=== PATIENT | female | born 1965 | race Caucasian/White ===

== ENCOUNTER 2017-01-17 15:24 | Emergency (ER) | payer OTHER ==
--- NOTE | 2017-01-17 19:31 | ED ---
GI/ HPI - HPI Summary HPI Summary: 51 y/o female with PMH for depression, thyroid, recetn UTI presents after feelings of something "stuck in throat". Patient states over past month has had difficulty swallowing where pieces of food will get "stuck" underneath sternum, taking several minutes to clear from throat. When these happened, patient was able to swallow secretions, minimal pain. H/O indigestion. over past week, symptoms worsened to where tonight patient was chewing meat, felt meat get stuck in bottom of esophagus, was unable to swallow secretions, vomited ~ 1 hour ago, now able to swallow without difficulty, has "sensation" of stricture at base of eophagus, mother recently with ? esop diliation . - History of Current Complaint Chief Complaint: EDGeneral Time Seen by Provider: 01/17/17 18:47 Stated Complaint: FOOD IN ESOPHAGUS Hx Obtained From: Patient Onset/Duration: Started Hours Ago - current symptoms, Started Weeks Ago Severity: Severe Current Severity: None Pain Intensity: 10 - Allergy/Home Medications Allergies/Adverse Reactions: Allergies Allergy/AdvReac Type Severity Reaction Status Date / Time Amoxicillin Allergy Mild r Verified 07/15/13 17:59 PMH/Surg Hx/FS Hx/Imm Hx Previously Healthy: Yes - hypothyroid, depression History: Reports: Hx Kidney Stones - BILATERAL - Surgical History Surgery Procedure, Year, and Place: laproscopic surgerie for endometriosis 20 years prior, TUBAL, TONSILLECTOMY - Immunization History Date of Tetanus Vaccine: UP TO DATE Date of Influenza Vaccine: FALL 2012 Immunizations Up to Date: Yes Infectious Disease History: No Infectious Disease History: Denies: Traveled Outside the [place] in Last 30 Days - Social History Alcohol Use: Occasionally Substance Use Type: Reports: None Smoking Status (MU): Never Smoked Tobacco Review of Systems Positive: Other - difficulty swalllwing FB in thraot Positive: Abdominal Pain, Vomiting All Other Systems Reviewed And Are Negative: Yes Physical Exam Triage Information Reviewed: Yes Vital Signs On Initial Exam: Initial Vitals Temp Pulse Resp BP Pulse Ox 96.8 F 66 20 111/73 100 01/17/17 15:39 01/17/17 15:39 01/17/17 15:39 01/17/17 15:39 01/17/17 15:39 Vital Signs Reviewed: Yes Appearance: Positive: Well-Appearing, No Pain Distress, Well-Nourished Skin: Positive: Warm, Skin Color Reflects Adequate Perfusion ENT: Positive: Normal ENT inspection Neck: Positive: Supple, Nontender Respiratory/Lung Sounds: Positive: Clear to Auscultation, Breath Sounds Present Cardiovascular: Positive: Normal, RRR, Pulses are Symmetrical in both Upper and Lower Extremities Abdomen Description: Positive: Nontender, No Organomegaly, Soft, Other: - mild epigastric apin with deep palpation. Negative: CVA Tenderness (R), CVA Tenderness (L), Distended, Guarding Diagnostics - Vital Signs Vital Signs Temp Pulse Resp BP Pulse Ox 01/17/17 16:38 98.1 F 86 20 118/64 100 01/17/17 15:39 96.8 F 66 20 111/73 100 - Laboratory Lab Statement: Any lab studies that have been ordered have been reviewed, and results considered in the medical decision making process. GIGU Course/Dx - Course Course Of Treatment: Discussed case with DR. Smith and Dr. Renee, Dr renee will follow as outpaient agreed to radiograph to eval for FB, none seen on review, Protonix for indigestion/ soft diet, return for new sytmpoms. patient curently asmptomatic, swallowing well without difficulty - Diagnoses Differential Diagnoses - Female: Esophagitis/Gastritis, Esophageal Varices, Retained Foreign Body Provider Diagnoses: Foreign body in esophagus Discharge - Discharge Plan Condition: Guarded Disposition: HOME Prescriptions: Pantoprazole Sodium [Protonix] 20 mg PO BID #60 tab Patient Education Materials: Esophageal Stricture (ED), Esophageal Spasm (ED) Referrals: Remberto Lobato MD [Medical Doctor] - (Follow up with GI physician within 1-2 weeks for further work up, evaluation ) Melissa Justice MD [Primary Care Provider] - Additional Instructions: - Soft diet only- boiled meats, no raw vegetables. Soft foods only, such as soups. - Protonix daily as directed - REturn to ER with repeat symptoms, unable to swallow secretions
--- NOTE | 2017-01-17 19:42 | RAD ---
INDICATION: Foreign body sensation in throat COMPARISON: None TECHNIQUE: PA and lateral views of the chest were obtained. FINDINGS: The heart and mediastinum are normal in size and contour. The lungs are grossly clear. There is no evidence of large pleural effusion. Visualized bones are normal for the patient's age. There is no radiographic evidence of free air beneath the diaphragm IMPRESSION: No radiographic evidence of acute cardiopulmonary disease.
[2017-01-17] MEDS ORDERED: Famotidine TAB* 20 MG PO ONE (19:54)
[2017-01-17 21:32] VITALS: BP 115/67
== END 2017-01-17 21:15 | disposition home or self-care (01) ==
LOC: ED 15:24
DX: T18.108A Unspecified foreign body in esophagus causing other injury, initial encounter (principal); X58.XXXA Exposure to other specified factors, initial encounter; Y92.9 Unspecified place or not applicable; E03.9 Hypothyroidism, unspecified; F32.9 Major depressive disorder, single episode, unspecified; Z87.442 Personal history of urinary calculi
CPT/HCPCS: 71020; A9270-GY

== ENCOUNTER 2017-05-16 15:19 | Emergency (ER) | payer OTHER ==
[2017-05-16] MEDS ORDERED: NS 0.9% 1000 ML* 2,000 ML IV ONE (17:37)
[2017-05-16] MEDS ORDERED: Ondansetron INJ* 2 MG/ML VIAL IV ONE (17:59)
[2017-05-16] MEDS ORDERED: Ketorolac INJ* 30 MG/ML 1 ML VIAL IV PUSH ONE (17:59)
[2017-05-16 18:04] LABS: Hematocrit 38 % (35-47); Hemoglobin 13.4 g/dl (12.0-16.0); Mean Corpuscular HGB Conc 35 g/dl (31-36); Mean Corpuscular Hemoglobin 31 pg (27-31); Mean Corpuscular Volume 88 fL (80-97); Mean Platelet Volume 9 um3 (7.4-10.4); Platelet Count 103 10^3/ul (150-450); Red Blood Count 4.32 10^6/ul (4.0-5.4); Red Cell Distribution Width 12 % (10.5-15); White Blood Count 3.9 10^3/ul (3.5-10.8)
[2017-05-16 18:17] LABS: EGFR Non-African American 91.6 (>60)
[2017-05-16 19:27] VITALS: BP 121/68
--- NOTE | 2017-05-19 12:54 | ED ---
Edmundo Hartmann Stephanie, scribed for Garrett Ravi MD on 05/16/17 at 1802 . GI/ HPI - HPI Summary HPI Summary: The pt is a 51 y/o F presenting to the ED with c/o diarrhea that began on 05/14. Symptoms include decreased energy, chills, weakness, nausea, intermittent abd pain, cough and myalgia. The pt denies CP, SOB and bloody stools. - History of Current Complaint Chief Complaint: EDNauseaVomitDiarrh Time Seen by Provider: 05/16/17 17:37 Stated Complaint: FEVER Hx Obtained From: Patient Onset/Duration: Started Hours Ago - 14 Timing: Intermittent Current Severity: Mild Pain Intensity: 0 Location of Pain: Diffuse Associated Signs and Symptoms: Positive: Weakness, Nausea, Chills, Cough, Other : - decreased energy, myalgia, intermittent abd pain Aggravating Factor(s): Nothing Alleviating Factor(s): Nothing - Allergy/Home Medications Allergies/Adverse Reactions: Allergies Allergy/AdvReac Type Severity Reaction Status Date / Time No Known Allergies Allergy Verified 05/16/17 17:29 Home Medications: Home Medications Pantoprazole Sodium 20 mg PO DAILY 05/16/17 [History Confirmed 05/16/17] PMH/Surg Hx/FS Hx/Imm Hx History: Reports: Hx Kidney Stones - BILATERAL Opthamlomology History: Denies: Hx Legally Blind - Surgical History Surgery Procedure, Year, and Place: laproscopic surgerie for endometriosis 20 years prior, TUBAL, TONSILLECTOMY - Immunization History Date of Tetanus Vaccine: UP TO DATE Date of Influenza Vaccine: FALL 2012 Infectious Disease History: No Infectious Disease History: Denies: Traveled Outside the [place] in Last 30 Days - Family History Known Family History: Positive: Other - diabetes, cancer, achromeglia, arthritis , arthritis, mental illness an - Social History Occupation: Employed Full-time Lives: With Family Alcohol Use: None Substance Use Type: Reports: None Smoking Status (MU): Never Smoked Tobacco Review of Systems Positive: Chills, Other - decreased energy. Negative: Fever Negative: Erythema Negative: Sore Throat Negative: Chest Pain Positive: Cough. Negative: Shortness Of Breath Positive: Abdominal Pain, Diarrhea, Nausea, Other - Negative: bloody stools. Negative: Vomiting Negative: dysuria, hematuria Positive: Myalgia. Negative: Edema Negative: Rash Neurological: Other - Negative: dizziness Positive: Weakness All Other Systems Reviewed And Are Negative: Yes Physical Exam - Summary Physical Exam Summary: Constitutional: Well-developed, Well-nourished, Alert. (-) Distressed Skin: Warm, Dry HENT: Normocephalic; Atraumatic Eyes: Conjunctiva normal Neck: Musculoskeletal ROM normal neck. (-) JVD, (-) Stridor, (-) Tracheal deviation Cardio: Rhythm regular, rate normal, Heart sounds normal; Intact distal pulses; The pedal pulses are 2+ and symmetric. Radial pulses are 2+ and symmetric. (-) Murmur Pulmonary/Chest wall: Effort normal. (-) Respiratory distress, (-) Wheezes, (-) Rales Abd: Soft, (-) Tenderness, (-) Distension, (-) Guarding, (-) Rebound Musculoskeletal: (-) Edema Lymph: (-) Cervical adenopathy Neuro: Alert, Oriented x3 Psych: Mood and affect Normal Triage Information Reviewed: Yes Vital Signs On Initial Exam: Initial Vitals Temp Pulse Resp BP Pulse Ox 99.7 F 92 20 126/63 97 05/16/17 15:45 05/16/17 15:45 05/16/17 15:45 05/16/17 15:45 05/16/17 15:45 Vital Signs Reviewed: Yes Diagnostics - Vital Signs Vital Signs Temp Pulse Resp BP Pulse Ox 05/16/17 15:45 99.7 F 92 20 126/63 97 - Laboratory Lab Results: Lab Results 05/16/17 Range/Units 16:00 Influenza A (Rapid) Negative (Negative) Influenza B (Rapid) Negative (Negative) Result Diagrams: 05/16/17 17:50 05/16/17 17:50 Lab Statement: Any lab studies that have been ordered have been reviewed, and results considered in the medical decision making process. GIGU Course/Dx - Course Course Of Treatment: Follow up with PCP in 2 days. Increase clear liquids containing electrolytes. No surgical abdomen - Diagnoses Provider Diagnoses: Diarrhea, Dehydration Discharge - Discharge Plan Condition: Stable Disposition: HOME Patient Education Materials: Dehydration (ED), Nutrition Tips for Relief of Diarrhea (ED) Referrals: Philly Pink [facility] [Primary Care Provider] - 3 Days [facility] [place] PHYSICIAN REFERRAL [Outside] - 3 Days Additional Instructions: RETURN TO THE EMERGENCY DEPARTMENT FOR CHANGING OR WORSENING SYMPTOMS. Increase clear liquids containing electrolytes. The documentation as recorded by the Edmundo sarmiento Stephanie accurately reflects the service I personally performed and the decisions made by me, Garrett Ravi MD.
== END 2017-05-16 19:25 | disposition home or self-care (01) ==
LOC: ED 15:19
DX: R19.7 Diarrhea, unspecified (principal); E86.0 Dehydration
CPT/HCPCS: 36415; 80053; 85027; 87502; 96374; 96375; 99284; J1885; J2405

== ENCOUNTER 2019-03-08 11:37 | Emergency (ER) | payer OTHER ==
--- OUTSIDE RECORDS SUMMARY | 2019-03-08 12:05 | XMS REPORT ---
:1965 Author Organization [facility] Team Providers Name Role Phone Ramiro Wick Unavailable Unavailable PROBLEMS Unknown Problems ALLERGIES No Information ENCOUNTERS Encounter Location Date Diagnosis [address] [id number] Dec, [address] [address] Dec, [address] [address] Nov, [address] [address] May, [address] [address] May, [address] [address] May, [address] [address] Sep, [address] [address] Sep, [address] [address] Jan, [address] [address] Jan, IMMUNIZATIONS No Known Immunizations SOCIAL HISTORY Never Assessed REASON FOR REFERRAL FUNCTIONAL STATUS PLAN OF CARE VITAL SIGNS MEDICATIONS Unknown Medications PROCEDURES No Known procedures RESULTS No Results REASON FOR VISIT No show 1 Insurance Providers [facility] Member Patient Patient Patient Patient Patient Subscriber Subscriber Subscriber Group Insurance Plan Plan Plan Plan ID Relationship Address Phone Name Date of ID Name Date of No Type Insurance Insurance Insurance Coverage to Subscriber Address Phone Name Dates Medicaid [id number] [phone] Medicaid self [place] [id number] W[facility] [address] [place] [id number] Cigna [phone] Cigna Far[place]h 1965 [id number] Dental PPO [id number] Dental PPO [place] 4 [place] [address] Cuate [phone] [place] self [place] [id number] Medicaid [place] [address] [place] [address] Medical Cuate [phone] [place] self [place] [id number] Medicaid [id number] Medicaid [place] [facility] [id number] [employer] MEDICAL (GENERAL) HISTORY Type Description Date Medical History anxiety Medical History thyroid disorder
[2019-03-08] MEDS ORDERED: NS 0.9% 1000 ML** 1,000 ML IV ONE (12:06)
--- NOTE | 2019-03-08 12:06 | ED ---
Complex/Multi-Sys Presentation - HPI Summary HPI Summary: Patient is a 53 y/o F presenting to [facility] with complaints of constipation, lower abdominal pain, and a sensation that her esophagus is "closing up". Patient reports that she has not had a BM for at least the past two days. Since this morning, she has been experiencing this "closing up" sensation of her esophagus. She states that she was nauseous and dry heaving this morning as well. Patient additionally claims that she has had lower abdominal pain and a sensation that she describes as "something is blocking in my stomach" for the past week. Patient states that she is "rarely" passing gas. She notes that she had a colonoscopy a few years ago with polyp removal. She additionally states that she had a previous episode where some meat had become lodged in her esophagus. Patient had managed to vomit up this meat. She reports that she went to get an endoscopy done afterwards and states that she was told that her esophagus is "thinning". Patient claims that her mom had this as well. In the room, patient was able to drink water without any complications. On triage, associated severity is rated 8/10, nothing is noted to aggravate/alleviate Sx. Home medications and allergies are reviewed. - History Of Current Complaint Chief Complaint: EDAbdPain Time Seen by Provider: 03/08/19 11:49 Hx Obtained From: Patient Onset/Duration: Lasting Hours - esophageal blockage sensation, Lasting Days - constipation, Lasting Weeks - rarely passing gas, stomach blockage sensation, Still Present Timing: Hours - esophageal blockage sensation, Days - constipation, Weeks - rarely passing gas, stomach blockage sensation Severity Currently: Severe Aggravating Factor(s): nothing Alleviating Factor(s): nothing Associated Signs And Symptoms: Positive: Nausea, Abdominal Pain, Other - esophageal blockage sensation, constipation, rarely passing gas, dry-heaving, stomach blockage sensation - Allergies/Home Medications Allergies/Adverse Reactions: Allergies Allergy/AdvReac Type Severity Reaction Status Date / Time amoxicillin Allergy Hives Verified 03/08/19 11:44 PMH/Surg Hx/FS Hx/Imm Hx History: Reports: Hx Kidney Stones - BILATERAL, Other Problems/Disorders - Hx of polyps Sensory History: Denies: Hx Legally Blind Opthamlomology History: Denies: Hx Legally Blind - Surgical History Surgery Procedure, Year, and Place: laproscopic surgerie for endometriosis 20 years prior, TUBAL, TONSILLECTOMY - Immunization History Date of Tetanus Vaccine: UP TO DATE Date of Influenza Vaccine: FALL 2012 Infectious Disease History: No Infectious Disease History: Denies: Traveled Outside the [place] in Last 30 Days - Family History Known Family History: Positive: Other - diabetes, cancer, achromeglia, arthritis , arthritis, mental illness - Social History Alcohol Use: None Substance Use Type: Reports: None Smoking Status (MU): Never Smoked Tobacco Review of Systems ENT: Other - positive - esophageal blockage sensation Gastrointestinal: Other - positive - constipation, stomach blockage sensation, rarely passing gas Positive: Abdominal Pain, Vomiting - dry-heaving , Nausea All Other Systems Reviewed And Are Negative: Yes Physical Exam - Summary Physical Exam Summary: VITAL SIGNS: Reviewed. GENERAL: Patient is a well-developed and overweight female who is lying comfortable in the stretcher. Patient is not in any acute respiratory distress. HEAD AND FACE: No signs of trauma. No ecchymosis, hematomas or skull depressions. No sinus tenderness. EYES: PERRLA, EOMI x 2, No injected conjunctiva, no nystagmus. EARS: Hearing grossly intact. Ear canals and tympanic membranes are within normal limits. MOUTH: Oropharynx within normal limits. NECK: Supple, trachea is midline, no adenopathy, no JVD, no carotid bruit, no c- spine tenderness, neck with full ROM. CHEST: Symmetric, no tenderness at palpation. LUNGS: Clear to auscultation bilaterally. No wheezing or crackles. CVS: Regular rate and rhythm, S1 and S2 present, no murmurs or gallops appreciated. ABDOMEN: Soft, non-tender. No signs of distention. No rebound, no guarding, and no masses palpated. Bowel sounds are normal. EXTREMITIES: FROM in all major joints, no edema, no cyanosis or clubbing. NEURO: Alert and oriented x 3. No acute neurological deficits. Speech is normal and follows commands. SKIN: Dry and warm. Triage Information Reviewed: Yes Vital Signs On Initial Exam: Initial Vitals Temp Pulse Resp BP Pulse Ox 99.4 F 63 16 122/92 100 03/08/19 11:40 03/08/19 11:40 03/08/19 11:40 03/08/19 11:40 03/08/19 11:40 Vital Signs Reviewed: Yes Procedures - Sedation Patient Received Moderate/Deep Sedation with Procedure: No Diagnostics - Vital Signs Vital Signs Temp Pulse Resp BP Pulse Ox 03/08/19 11:40 99.4 F 63 16 122/92 100 - Laboratory Result Diagrams: 03/08/19 12:11 03/08/19 12:11 Lab Statement: Any lab studies that have been ordered have been reviewed, and results considered in the medical decision making process. - CT CT ABD/PEL CT Interpretation Completed By: Radiologist Summary of CT Findings: IMPRESSION: No abnormal masses or fluid collections are identified. 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 THIS REPORT WAS REVIEWED BY DR. YANCEY. - EKG 1220 Cardiac Rate: Bradycardia - rate of 54 BPM EKG Rhythm: Sinus Bradycardia Summary of EKG Findings: EKG showed sinus bradycardia with rate of 54 BPM, normal axis and no ST elevations. This EKG was reviewed and interpreted by Dr. Yancey. Re-Evaluation - Re-Evaluation First Eval Re-Evaluation Time: 15:13 Comment: I discussed all the findings and test results with the patient. Patient was instructed to return to the emergency room immediately if any of the symptoms return worsens. Plan of care was discussed with the patient and understands and agrees. All questions were answered at patient satisfaction. There were no further complaints or concerns. Lung exam before discharge: CTA B/ L. Good air exchange. No wheezing or crackles heard. CVS: S1 and S2 present. No murmurs appreciated. Patient is alert and oriented x 3. Patient is hemodynamically stable. Patient will be discharged home with follow up PCP in the next 2-3 days Complex Multi-Symp Course/Dx Assessment/Plan: This patient is a 53-year-old female who presents to the emergency department with a chief complaint of having lower abdominal pain, and some difficulty swallowing. Blood test results without any significant abnormality except for WBCs of 2.7, platelet count 127, sodium 133, chloride 100. Urinalysis is negative for UTI. Troponin is 0.00. The patient was able to swallow water without any difficulty. Patient reports that she has a history of esophageal strictures. However, at the abd/pel CT with by mouth and IV contrast, the patient was able to drink contrast without any difficulty. Abdominopelvic CT impression: No abnormal masses or fluid collections are identified. Likely a hemangioma in the dome of the liver similar to incise to the identified on July 15, 2013. I discussed all the findings and test results with the patient. Patient was instructed to return to the emergency room immediately if any of the symptoms return worsens. Plan of care was discussed with the patient and understands and agrees. All questions were answered at patient satisfaction. There were no further complaints or concerns. Lung exam before discharge: CTA B/L. Good air exchange. No wheezing or crackles heard. CVS : S1 and S2 present. No murmurs appreciated. Patient is alert and oriented x 3. Patient is hemodynamically stable. Patient will be discharged home with follow up PCP in the next 2-3 days - Diagnoses Differential Diagnoses/HQI/PQRI: Cardiac Ischemia, Other - Cosntipation, SBO, Diverticulitis, Colitis Provider Diagnoses: Lower abdominal pain Discharge ED - Sign-Out/Discharge Documenting (check all that apply): Patient Departure - discharge - Discharge Plan Condition: Stable Disposition: HOME Patient Education Materials: Abdominal Pain (ED) Referrals: Katie White MD [Primary Care Provider] - 3 Days Additional Instructions: PLEASE RETURN TO ED FOR ANY NEW OR WORSENING SYMPTOMS. PLEASE FOLLOW UP WITH YOUR PRIMARY CARE PHYSICIAN WITHIN THREE DAYS. - Billing Disposition and Condition Condition: STABLE Disposition: Home - Attestation Statements Document Initiated by Aby: Yes Documenting Scribe: PRIETO LOPEZ Provider For Whom Aby is Documenting (Include Credential): BOB YANCEY MD Scribe Attestation: PRIETO Hartmann, scribed for BOB YANCEY MD on 03/09/19 at 1242. Scribe Documentation Reviewed: Yes Provider Attestation: The documentation as recorded by the PRIETO sarmiento accurately reflects the service I personally performed and the decisions made by me, BOB YANCEY MD Status of Scribe Document: Viewed
[2019-03-08 12:23] LABS: ABS Lymphocytes 0.8 10^3/ul (1.0-4.8); ABS Monocytes 0.2 10^3/ul (0-0.8); ABS Neutrophils 1.6 10^3/ul (1.5-7.7); Eosinophil % 0.5 %; Hematocrit 40 % (35-47); Hemoglobin 13.5 g/dL (12.0-16.0); Mean Corpuscular HGB Conc 34 g/dL (31-36); Mean Corpuscular Hemoglobin 31 pg (27-31); Mean Corpuscular Volume 90 fL (80-97); Mean Platelet Volume 9.4 fL (7.4-10.4); Nucleated Red Blood Cells % 0.1; Platelet Count 127 10^3/uL (150-450); Red Blood Count 4.43 10^6 /uL (3.70-4.87); Red Cell Distribution Width 13 % (10-15); White Blood Count 2.7 10^3/uL (3.5-10.8)
[2019-03-08 12:36] LABS: Albumin 4.2 g/dL (3.2-5.2); Calcium 9.4 mg/dL (8.6-10.3); Magnesium 1.9 mg/dL (1.9-2.7); Potassium 3.9 mmol/L (3.5-5.0); Total Bilirubin 0.4 mg/dL (0.2-1.0)
[2019-03-08 12:36] LABS: Urine Appearance Clear; Urine Bilirubin Negative (Negative); Urine Blood Negative (Negative); Urine Color Yellow; Urine Glucose Negative (Negative); Urine Ketones Negative (Negative); Urine Nitrite Negative (Negative); Urine Protein Negative (Negative); Urine Specific Gravity 1.006 (1.010-1.030); Urine Urobilinogen Negative (Negative)
[2019-03-08 12:42] LABS: Albumin/Globulin Ratio 1.5 (1-3); BUN/Creatinine Ratio 19.7 (8-20); C Reactive Protein 2.26 mg/L (<8.01); EGFR African American 104.6 (>60); EGFR Non-African American 86.4 (>60); Globulin 2.8 g/dL (2-4)
[2019-03-08 12:46] LABS: Urine Bacteria Absent (Absent); Urine Red Blood Cell Trace(0-2/hpf) (Absent); Urine White Blood Cell Trace(0-5/hpf) (Absent)
[2019-03-08] MEDS ORDERED: Iohexol 300* (CONTRAST) 10 ML SDV IV ONE (12:47)
[2019-03-08 16:09] VITALS: BP 133/80
== END 2019-03-08 15:40 | disposition home or self-care (01) ==
LOC: ED 11:37
DX: R10.30 Lower abdominal pain, unspecified (principal); R91.1 Solitary pulmonary nodule; Z87.442 Personal history of urinary calculi; Z98.51 Tubal ligation status; Z88.0 Allergy status to penicillin
CPT/HCPCS: 36415; 74177; 80053; 81003; 81015; 83605; 83690; 83735; 84484; 85025; 86140; 87086; 93005; 96360; 99283; Q9967